=== PATIENT | female | born 1950 | race Caucasian/White ===

== ENCOUNTER 2017-01-22 19:37 | Emergency (ER) | payer MEDICARE, BC ==
[2017-01-22 20:20] VITALS: BP 151/94
--- NOTE | 2017-01-22 22:07 | EDM.PDOC ---
ED HPI GENERAL MEDICAL PROBLEM - General Chief Complaint: ENT Problem Stated Complaint: NOSE BLEED/ON COUMADIN Time Seen by Provider: 01/22/17 20:16 Source of Information: Reports: Patient History Limitations: Reports: No Limitations - History of Present Illness INITIAL COMMENTS - FREE TEXT/NARRATIVE: History of present illness: [66-year-old female presents with bleeding out of the left near. She is on Coumadin. She has an artificial valve. The first time this is ever happened. She has no lightheaded or dizziness.] Review of systems: As per history of present illness and below otherwise all systems reviewed and negative. Past medical history: As per history of present illness and as reviewed below otherwise noncontributory. Surgical history: As per history of present illness and as reviewed below otherwise noncontributory. Social history: No reported history of drug or alcohol abuse. Family history: As per history of present illness and as reviewed below otherwise noncontributory. Physical exam: HEENT: Atraumatic, normocephalic, pupils reactive, she does have a sub- conjunctival hemorrhage of the left eye but vision is good and no pain there., mucous membranes moist, throat clear, neck supple, nontender, trachea midline. After clearing the left near from clot she was weeping along the whole septum with some blood trickling down the left posterior pharynx. Lungs: Clear to auscultation Heart: S1S2, regular Abdomen: Soft, nondistended, nontender. Extremities: Atraumatic, negative for cords or calf pain. Neurovascular unremarkable. Neuro: Awake, alert, oriented.Exam nonfocal. Diagnostics: [Her INR was therapeutic and her hemoglobin was within the normal range] Therapeutics: [A 7.5 cm Rhino Rocket was placed in the left naris and inflated and the patient was observed for about 45 minutes and that was working successfully and stopping her bleeding] Impression: [Epistaxis] Plan: [I'm recommending she follow up in the clinic on Saturday and have the device removed.] Definitive disposition and diagnosis as appropriate pending reevaluation and review of above. - Related Data Allergies Allergy/AdvReac Type Severity Reaction Status Date / Time amoxicillin trihydrate Allergy Mild Abdominal Verified 03/13/13 10:41 [From Augmentin] Pain potassium clavulanate Allergy Abdominal Verified 03/13/13 10:38 [From Augmentin] Pain sulfamethoxazole Allergy Cannot Verified 03/13/13 10:42 [Sulfamethoxazole] Remember Home Meds: Home Meds HCTZ/Triamterene [Maxzide 25-37.5 MG] 0.5 tab PO DAILY 03/16/13 [History] Loratadine [Claritin] 10 tab PO BID 03/16/13 [History] Potassium Chloride [Potassium Chloride Solution] 20 meq PO BID 03/16/13 [History ] Simvastatin 20 mg PO DAILY 03/16/13 [History] Warfarin [Coumadin] 2 mg PO DAILY 03/16/13 [History] Warfarin [Coumadin] 4.5 mg PO ASDIRECTED 03/16/13 [History] Past Medical History 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: Hematologic History: Reports: Anticoagulation Therapy Oncologic (Cancer) History: Reports: Breast - Past Surgical History Cardiovascular Surgical History: Reports: Valve Replacement, Other (See Below) Other Cardiovascular Surgeries/Procedures: on coumadin Oncologic Surgical History: Reports: Lumpectomy Social & Family History - Tobacco Use Smoking Status *Q: Current Some Day Smoker Years of Tobacco use: 30 Packs/Tins Daily: 0.5 Second Hand Smoke Exposure: No - Caffeine Use Caffeine Use: Reports: None - Alcohol Use Days Per Week of Alcohol Use: 1 Number of Drinks Per Day: 2 Total Drinks Per Week: 2 - Recreational Drug Use Recreational Drug Use: No ED ROS ENT - Review of Systems Review Of Systems: ROS reveals no pertinent complaints other than HPI. ED EXAM, ENT - Physical Exam Exam: See Below Course - Vital Signs Last Recorded V/S: Last Vital Signs Temp 36.3 C 01/22/17 20:18 Pulse 80 01/22/17 20:18 Resp 12 01/22/17 20:18 BP 151/94 H 01/22/17 20:18 Pulse Ox 97 01/22/17 20:18 - Orders/Labs/Meds Labs: Laboratory Tests 01/22/17 01/22/17 Range/Units 20:30 20:30 WBC 6.7 (4.5-11.0) K/uL RBC 4.87 (3.30-5.50) M/uL Hgb 15.7 H (12.0-15.0) g/dL Hct 45.0 (36.0-48.0) % MCV 92 (80-98) fL MCH 32 H (27-31) pg MCHC 35 (32-36) % Plt Count 227 (150-400) K/uL Neut % (Auto) 69 H (36-66) % Lymph % (Auto) 20 L (24-44) % [place] % (Auto) 8 H (2-6) % Eos % (Auto) 2 (2-4) % Baso % (Auto) 1 (0-1) % PT 31.2 H (9.5-12.0) sec INR 2.79 H (0.80-1.20) Departure - Departure Time of Disposition: 22:07 Disposition: Home, Self-Care 01 Condition: Good Clinical Impression: Epistaxis - Discharge Information Forms: ED Department Discharge Additional Instructions: As we discussed you can call and make an appointment to have this device removed in the clinic on Saturday. If the bleeding starts up again you can try increasing the pressure and if that doesn't work you have to return to the emergency room.
== END 2017-01-22 22:20 | disposition home or self-care (01) ==
LOC: JP.ED 19:37
DX: R04.0 Epistaxis (principal); F17.210 Nicotine dependence, cigarettes, uncomplicated; Z95.4 Presence of other heart-valve replacement; Z79.01 Long term (current) use of anticoagulants; Z88.1 Allergy status to other antibiotic agents; Z88.2 Allergy status to sulfonamides
CPT/HCPCS: 30901; 30903; 36415; 85025; 85610; 99283-25

== ENCOUNTER 2018-12-01 08:51 | Emergency (ER) | payer MEDICARE, BC ==
[2018-12-01] MEDS ORDERED: Sodium Chloride 0.9% 10 ML Syringe FLUSH PRN (09:17)
--- NOTE | 2018-12-01 09:23 | EDM.PDOC ---
ED HPI GENERAL MEDICAL PROBLEM - General Chief Complaint: Cardiovascular Problem Stated Complaint: AFIB Time Seen by Provider: 12/01/18 09:05 Source of Information: Reports: Patient, Old Records History Limitations: Reports: No Limitations - History of Present Illness INITIAL COMMENTS - FREE TEXT/NARRATIVE: 68 yo female with a pHx of paroxysmal afib has had a rapid HR since yesterday morning. She took a dose of diltiazem 30 mg yesterday morning and last night that resulted in transient slowing of her HR. Since her HR was high again this morning she decided to come to the ER. She has AGUSTIN, no other sx's associated with this afib with RVR. Is on warfarin. Says she is generally not in afib most of the time historically. Onset: Sudden Onset Date: 11/30/18 Duration: Day(s): (1), Constant Location: Reports: Chest Quality: Reports: Other (no pain) Severity: Moderate Improves with: Reports: Rest Worsens with: Reports: Movement (exertion) Context: Reports: Other (see HPI) Associated Symptoms: Reports: Shortness of Breath (with exertion only). 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 (see below) (none today) denies Pain Score (Numeric/FACES): 0 - Related Data Allergies Allergy/AdvReac Type Severity Reaction Status Date / Time amoxicillin trihydrate Allergy Mild Abdominal Verified 12/01/18 09:11 [From Augmentin] Pain potassium clavulanate Allergy Abdominal Verified 12/01/18 09:11 [From Augmentin] Pain sulfamethoxazole Allergy Cannot Verified 12/01/18 09:11 [Sulfamethoxazole] Remember Home Meds: Home Meds HCTZ/Triamterene [Maxzide 25-37.5 MG] 0.5 tab PO DAILY 03/16/13 [History] Loratadine [Claritin] 10 tab PO BID 03/16/13 [History] Potassium Chloride [Potassium Chloride Solution] 20 meq PO BID 03/16/13 [History ] Simvastatin 20 mg PO DAILY 03/16/13 [History] Warfarin [Coumadin] 1 mg PO DAILY 03/16/13 [History] Warfarin [Coumadin] 4.5 mg PO ASDIRECTED 03/16/13 [History] Calcium Carbonate/Vitamin D3 [Calcium 600 + Vit D 400 Softgl] 1 tab PO DAILY 04/11 [History] Diltiazem HCl [Cardizem Cd] 240 mg PO DAILY #30 cap.er.24h 12/01/18 [Rx] Diltiazem HCl [Cardizem] 30 mg PO DAILY PRN 12/01/18 [History] Polyethylene Glycol 3350 17 gm PO DAILY PRN 12/01/18 [History] Past Medical History Cardiovascular History: Reports: Heart Valve Replacement 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 Denies: Wheezing, Pleuritic Chest Pain, Cough, Sputum, Hemoptysis Cardiovascular: Reports: Palpitations (tachycardia) GI/Abdominal: Reports: No Symptoms : Reports: No Symptoms Musculoskeletal: Reports: No Symptoms Skin: Reports: No Symptoms Neurological: Reports: No Symptoms Psychiatric: Reports: No Symptoms ED EXAM, GENERAL - Physical Exam Exam: See Below Exam Limited By: No Limitations General Appearance: Alert, WD/WN, No Apparent Distress Eye Exam: Bilateral Eye: Normal Inspection Ears: Normal External Exam, Normal Canal, Hearing Grossly Normal Ear Exam: Bilateral Ear: Auricle Normal, Canal Normal Nose: Normal Inspection, No Blood Throat/Mouth: Normal Inspection, Normal Lips, Normal Oropharynx, Normal Voice, No Airway Compromise Head: Atraumatic, Normocephalic Neck: Normal Inspection Respiratory/Chest: No Respiratory Distress, Lungs Clear, Normal Breath Sounds, No Accessory Muscle Use Cardiovascular: Regular Rate, Rhythm, Tachycardia GI/Abdominal: Normal Bowel Sounds, Soft, Non-Tender, No Distention Back Exam: Normal Inspection. No: CVA Tenderness (R), CVA Tenderness (L) Extremities: Normal Inspection, Normal Range of Motion, Non-Tender, No Pedal Edema Neurological: Alert, Oriented, CN II-XII Intact, No Motor/Sensory Deficits Psychiatric: Normal Affect, Normal Mood Skin Exam: Warm, Dry, Intact, Normal Color, No Rash EKG INTERPRETATION EKG Date: 12/01/18 Time: 15:00 Rhythm: A-Flutter Rate (Beats/Min): 113 [place]: Normal P-Wave: Absent QRS: Normal ST-T: Normal QT: Normal Comparison: No Change Course - Vital Signs Text/Narrative:: HR slowed to low 80's at rest, but climbed to mid 120's with walking. Will increase diltiazem IR to 60 mg from 30 mg now. Last Recorded V/S: Last Vital Signs Temp 34.8 C L 12/01/18 09:26 Pulse 91 12/01/18 10:14 Resp 15 12/01/18 10:14 BP 124/72 12/01/18 10:14 Pulse Ox 95 12/01/18 10:14 - Orders/Labs/Meds Orders: Active Orders 24 hr Category Date Time Status Cardiac Monitoring [RC] .As Directed Care 12/01/18 09:17 Active EKG Documentation Completion [RC] ASDIRECTED Care 12/01/18 11:14 Active Sodium Chloride 0.9% [Saline Flush] Med 12/01/18 09:17 Active 10 ml FLUSH ASDIRECTED PRN Saline Lock Insert [OM.PC] Routine Oth 12/01/18 09:17 Ordered EKG 12 Lead [EK] Routine Ther 12/01/18 11:13 Ordered Medication Orders Sodium Chloride (Saline Flush) 10 ml FLUSH ASDIRECTED PRN PRN Reason: Keep Vein Open Last Admin: 12/01/18 09:32 Dose: 10 ml Labs: Laboratory Tests 12/01/18 12/01/18 12/01/18 Range/Units 09:27 09:27 09:27 PT 23.1 H (9.5-12.0) sec INR 2.20 H (0.80-1.20) Sodium 138 L (140-148) mmol/L Potassium 4.3 (3.6-5.2) mmol/L Chloride 106 (100-108) mmol/L Carbon Dioxide 28 (21-32) mmol/L Anion Gap 8.3 (5.0-14.0) mmol/L BUN 23 H (7-18) mg/dL Creatinine 0.9 (0.6-1.0) mg/dL Est Cr Clr Drug Dosing 42.97 mL/min Estimated GFR (MDRD) > 60 (>60) Glucose 107 H (74-106) mg/dL Calcium 9.5 (8.5-10.1) mg/dL Troponin I < 0.017 (0.000-0.056) ng/mL TSH, Ultra Sensitive 1.879 (0.358-3.740) uIU/mL Meds: Medications Generic Name Dose Route Start Last Admin Trade Name Freq PRN Reason Stop Dose Admin Sodium Chloride 10 ml 12/01/18 09:17 12/01/18 09:32 Saline Flush FLUSH 10 ml ASDIRECTED PRN Administration Keep Vein Open Discontinued Medications Generic Name Dose Route Start Last Admin Trade Name Freq PRN Reason Stop Dose Admin Diltiazem HCl 30 mg 12/01/18 10:23 12/01/18 10:26 Cardizem PO 12/01/18 10:24 30 mg ONETIME ONE Administration Diltiazem HCl 30 mg 12/01/18 11:59 12/01/18 12:03 Cardizem PO 12/01/18 12:00 30 mg ONETIME ONE Administration Departure - Departure Time of Disposition: 12:10 Disposition: Home, Self-Care 01 Condition: Fair Clinical Impression: Atrial fibrillation with RVR Prescriptions: Diltiazem HCl [Cardizem Cd] 240 mg PO DAILY #30 cap.er.24h Instructions: Atrial Fibrillation, [id number] Referrals: Manolo Quintana MD [Primary Care Provider] - Forms: ED Department Discharge Additional Instructions: Take your warfarin when you get home from the ER. Take your extended release diltiazem 240 mg every day in the late afternoon. Recheck with your doctor within the week. Return as needed. No change in your other medications at this time. - My Orders Last 24 Hours: My Active Orders 12/01/18 09:17 Cardiac Monitoring [RC] .As Directed Sodium Chloride 0.9% [Saline Flush] 10 ml FLUSH ASDIRECTED PRN Saline Lock Insert [OM.PC] Routine 12/01/18 11:13 EKG 12 Lead [EK] Routine 12/01/18 11:14 EKG Documentation Completion [RC] ASDIRECTED - Assessment/Plan Last 24 Hours: My Active Orders 12/01/18 09:17 Cardiac Monitoring [RC] .As Directed Sodium Chloride 0.9% [Saline Flush] 10 ml FLUSH ASDIRECTED PRN Saline Lock Insert [OM.PC] Routine 12/01/18 11:13 EKG 12 Lead [EK] Routine 12/01/18 11:14 EKG Documentation Completion [RC] ASDIRECTED
[2018-12-01] MEDS ORDERED: Diltiazem IR 30 MG Tab PO ONE ×2 (10:23→11:59)
[2018-12-01 10:39] VITALS: BP 124/72
== END 2018-12-01 12:23 | disposition home or self-care (01) ==
LOC: JP.ED 08:51
DX: I48.91 Unspecified atrial fibrillation (principal); Z79.01 Long term (current) use of anticoagulants; Z79.899 Other long term (current) drug therapy; Z88.1 Allergy status to other antibiotic agents; Z88.2 Allergy status to sulfonamides
CPT/HCPCS: 36415; 80048; 84443; 84484; 85610; 93005; 99284; A9270

== ENCOUNTER 2021-06-27 06:56 | Day surgery (SDC) | payer MEDICARE, BC ==
[~2021-06-27 06:56] MED LIST: Propofol 200 MG/20 ML SDV ONE
[2021-06-27] MEDS ORDERED: Dextrose 5%-Lactated Ringers 1,000 ML IV SCH (07:15)
[2021-06-27] MEDS ORDERED: Meropenem 500 MG in Sodium Chloride 0.9% 50 ML IV ONE (07:15)
[2021-06-27 07:59] LABS: CORONAVIRUS COVID-19 NAA NEGATIVE (NEGATIVE)
[2021-06-27] MEDS ORDERED: fentaNYL 100 MCG/2 ML SDV ONE (08:24)
[2021-06-27 10:39] VITALS: BP 110/68; PULSE 64
--- NOTE | 2021-06-29 07:27 | OR ---
DATE OF PROCEDURE: 06/27/2021 SURGEON: Thee Soares MD PREOPERATIVE DIAGNOSES: 1. Indication for screening colonoscopy based on positive Cologuard test. 2. Family history of colon carcinoma (brother in his 40s). POSTOPERATIVE DIAGNOSES: 1. Indication for screening colonoscopy based on positive Cologuard test. 2. Family history of colon carcinoma (brother in his 40s). 3. Left colonic diverticulosis. 4. No polyps or other signs of neoplasia. OPERATIVE PROCEDURE: Flexible colonoscopy. ANESTHESIA: IV sedation. INDICATION FOR PROCEDURE: A 70-year-old female presenting with a positive Cologuard. On questioning the patient, she also has a family history of her brother, who is in his 40s, had a colon carcinoma. The plan is to proceed with a colonoscopy with biopsy and polypectomy as indicated. Potential risks, including bleeding and perforation, were discussed, and the patient wishes to proceed. DETAILS OF PROCEDURE: The patient was taken to the operating room and placed in a left lateral decubitus position. IV sedation was administered, after which the initial digital rectal exam was performed and was unremarkable. A colonoscope was passed into the rectum with retroflexion revealing uncomplicated hemorrhoidal columns. The scope was eventually passed to the cecum. The prep was quite good. Only small liquid stool was present. The patient was noted to have some uncomplicated left colonic diverticulosis. Otherwise, examination was unremarkable. No areas of colitis. No polyps or signs of neoplasia. The scope was then withdrawn, the above findings reconfirmed, and the procedure concluded. The patient was taken to the recovery room in satisfactory condition. Based on the family history of brother having colon carcinoma in his 40s, would recommend a repeat colonoscopy in 5 years. Thee Soares MD /[id number]
== END 2021-06-27 10:55 | disposition home or self-care (01) ==
LOC: JP.SDS 06:56
PROVIDERS: ATTEND Surgery
DX: K57.30 Diverticulosis of large intestine without perforation or abscess without bleeding (principal); I48.91 Unspecified atrial fibrillation; F17.210 Nicotine dependence, cigarettes, uncomplicated; E78.5 Hyperlipidemia, unspecified; K64.9 Unspecified hemorrhoids; M85.80 Other specified disorders of bone density and structure, unspecified site; Z01.812 Encounter for preprocedural laboratory examination; Z20.822 Contact with and (suspected) exposure to COVID-19; Z79.01 Long term (current) use of anticoagulants; Z79.899 Other long term (current) drug therapy; Z80.0 Family history of malignant neoplasm of digestive organs
CPT/HCPCS: 0241U; 36415; 45378; 85610; J2185; J2704; J3010; J7121